=== PATIENT | male | born 1965 | race Caucasian/White ===

== ENCOUNTER 2022-10-26 12:21 | Inpatient (IN) ==
[2022-10-26] MEDS ORDERED: SODIUM CHLORIDE 0.9% 1,000 ML IV STA (18:20)
[2022-10-26 18:44] LABS: Basophils # 0.1 10*3/uL (0.0-0.2); Basophils % 0.6 % (0.0-0.8); Eosinophils # 0.3 10*3/uL (0.0-0.87); Eosinophils % 1.9 % (0.00-10.9); Hematocrit 46.9 VOL% (42.0-52.0); Hemoglobin 15.3 GM/DL (14.0-18.0); Immature Granulocytes % 1.2 %; Immature Granulocytes Absolute 0.19 #; Lymphocytes # 2.5 10*3/uL (1.4-4.0); Lymphocytes % 15.2 % (21.2-54.2); Mean Corpuscular HGB Conc 32.6 GM/DL (32-36); Mean Corpuscular Volume 94.9 FL (87-102); Mean Platelet Volume 9.1 FL (9.6-12.0); Monocytes # 1.2 10*3/uL (0.11-0.8); Monocytes % 7.7 % (1.7-12.7); Neutrophils % 73.4 % (38.7-73.9); Platelet Count 405 T/CUMM (130-400); Red Blood Count 4.94 MC/CUMM (3.8-5.5); Red Cell Distribution Width 13.5 % (9.3-17.3); White Blood Count 16.2 T/CUMM (4-12)
[2022-10-26 18:53] LABS: PT Patient Result 11.1 SECS (10.1-12.1)
[2022-10-26 19:08] LABS: Alanine Aminotransferase 32 U/L (16-61); Albumin 3.2 G/DL (3.4-5.0); Alkaline Phosphatase 88 U/L (45-117); Aspartate Amino Transferase 21 U/L (0-37); Bilirubin,Total < 0.39 MG/DL (0.20-1.00); Blood Urea Nitrogen 23 MG/DL (7-18); Calcium 9.3 MG/DL (8.5-10.1); Carbon Dioxide 30 MMOL/L (21-32); Chloride 101 MMOL/L (98-107); Glucose 107 MG/DL (74-106); Sodium 136 MMOL/L (136-145); Total Protein 8.1 G/DL (6.4-8.2)
[2022-10-26] MEDS ORDERED: ONDANSETRON 4 MG/2 ML VIAL IV ONE (20:06)
[2022-10-26] MEDS ORDERED: MORPHINE 2 MG/1 ML SYRINGE IV ONE (20:06)
[2022-10-26] MEDS ORDERED: VANCOMYCIN INJ 1,000 MG in SODIUM CHLORIDE 0.9% 250 ML IV STA (20:34)
[2022-10-26] MEDS ORDERED: PIPERACILLIN/TAZOBACTAM 3,375 MG in SODIUM CHLORIDE 0.9% 100 ML IV STA (20:34)
[2022-10-26] MEDS ORDERED: PROMETHAZINE 25 MG/1 ML VIAL IM STA (20:54)
[2022-10-26] MEDS ORDERED: PROMETHAZINE 25 MG/1 ML VIAL IV PRN (22:23)
[2022-10-26] MEDS ORDERED: ONDANSETRON 4 MG/2 ML VIAL IV PRN (22:23)
[2022-10-26] MEDS ORDERED: NICOTINE 21 MG/24 HR PATCH TRANSDERM PRN (22:23)
[2022-10-26] MEDS ORDERED: hydrALAZINE 20 MG/1 ML VIAL IV PRN (22:23)
[2022-10-26] MEDS ORDERED: ACETAMINOPHEN 325 MG TABLET PO PRN (22:23)
[2022-10-26] MEDS: SODIUM CHLORIDE 0.9% 1,000 ML IV SCH (23:15)
[2022-10-26] MEDS ORDERED: ALBUTEROL/IPRATROPIUM 3 ML NEB RESP TX ONE (23:33)
[2022-10-26] MEDS: ALBUTEROL/IPRATROPIUM 3 ML NEB RESP TX SCH (23:35)
[2022-10-26] MEDS: HYDROmorphone 1 MG/1 ML SYRINGE IV PRN (23:37)
[2022-10-27] MEDS: HYDROmorphone 1 MG/1 ML SYRINGE IV PRN ×4 (03:27→20:47)
[2022-10-27 03:48] LABS: Basophils # 0.1 10*3/uL (0.0-0.2); Basophils % 0.6 % (0.0-0.8); Eosinophils # 0.6 10*3/uL (0.0-0.87); Eosinophils % 3.9 % (0.00-10.9); Hemoglobin 12.6 GM/DL (14.0-18.0); Immature Granulocytes Absolute 0.14 #; Lymphocytes # 3.1 10*3/uL (1.4-4.0); Lymphocytes % 22.1 % (21.2-54.2); Mean Corpuscular HGB Conc 32.3 GM/DL (32-36); Mean Corpuscular Volume 95.6 FL (87-102); Mean Platelet Volume 9.7 FL (9.6-12.0); Monocytes # 1.4 10*3/uL (0.11-0.8); Monocytes % 10.3 % (1.7-12.7); Neutrophils % 62.1 % (38.7-73.9); Platelet Count 327 T/CUMM (130-400); Red Blood Count 4.08 MC/CUMM (3.8-5.5); Red Cell Distribution Width 13.5 % (9.3-17.3)
[2022-10-27 04:21] LABS: Calcium 8.1 MG/DL (8.5-10.1); Osmolality,Calculated 280.3 MOS/KG (273-304); Potassium 4.3 MMOL/L (3.5-5.1)
[2022-10-27] MEDS ORDERED: PIPERACILLIN/TAZOBACTAM 3,375 MG in SODIUM CHLORIDE 0.9% 100 ML IV SCH (06:00)
[2022-10-27] MEDS: ALBUTEROL/IPRATROPIUM 3 ML NEB RESP TX SCH ×4 (06:55→19:50)
[2022-10-27] MEDS: SODIUM CHLORIDE 0.9% 1,000 ML IV SCH ×2 (07:37→17:53)
[2022-10-27] MEDS: LEVOFLOXACIN 500 MG TABLET PO SCH (10:27)
[2022-10-27] MEDS: methylPREDNISolone SOD SUC 40 MG/1 ML VIAL IV SCH ×2 (10:27→20:41)
[2022-10-27] MEDS: PANTOPRAZOLE 40 MG TABLET PO SCH (10:27)
[2022-10-27] MEDS ORDERED: VANCOMYCIN INJ 750 MG in SODIUM CHLORIDE 0.9% 250 ML IV SCH (16:00)
[2022-10-28] MEDS: ALBUTEROL/IPRATROPIUM 3 ML NEB RESP TX SCH ×4 (00:44→19:38)
[2022-10-28] MEDS: SODIUM CHLORIDE 0.9% 1,000 ML IV SCH ×4 (01:56→14:08)
[2022-10-28 05:41] LABS: Basophils % 0.1 % (0.0-0.8); Hemoglobin 12.6 GM/DL (14.0-18.0); Immature Granulocytes % 0.7 %; Immature Granulocytes Absolute 0.11 #; Lymphocytes # 1.1 10*3/uL (1.4-4.0); Lymphocytes % 7.1 % (21.2-54.2); Mean Corpuscular HGB Conc 32.3 GM/DL (32-36); Mean Corpuscular Volume 95.6 FL (87-102); Mean Platelet Volume 9.6 FL (9.6-12.0); Monocytes # 0.6 10*3/uL (0.11-0.8); Monocytes % 4.1 % (1.7-12.7); Platelet Count 284 T/CUMM (130-400); Red Blood Count 4.08 MC/CUMM (3.8-5.5); Red Cell Distribution Width 13.3 % (9.3-17.3)
[2022-10-28 05:51] LABS: PT Patient Result 11.4 SECS (10.1-12.1); Partial Thromboplastin Time 33.3 SECS (23.7-32.9)
[2022-10-28] MEDS: methylPREDNISolone SOD SUC 40 MG/1 ML VIAL IV SCH ×3 (05:58→21:01)
[2022-10-28] MEDS ORDERED: MEPERIDINE 50 MG/1 ML VIAL IM ONE (08:00)
[2022-10-28] MEDS ORDERED: diphenhydrAMINE 50 MG/1 ML VIAL IM ONE (08:00)
[2022-10-28] MEDS ORDERED: BENZONATATE 100 MG CAPSULE PO ONE (08:00)
[2022-10-28] MEDS ORDERED: LIDOCAINE 2% VISCOUS 100 ML BOTTLE SWISH/SPIT ONE (08:30)
[2022-10-28] MEDS ORDERED: LIDOCAINE 2% 20 ML VIAL RESP TX ONE (08:30)
[2022-10-28] MEDS ORDERED: LIDOCAINE 1% 20 ML VIAL MISC INJ ONE (08:30)
[2022-10-28] MEDS ORDERED: MIDAZOLAM 2 MG/2 ML VIAL ONE (08:45)
[2022-10-28] MEDS ORDERED: ALBUTEROL/IPRATROPIUM 3 ML NEB RESP TX ONE (09:21)
[2022-10-28] MEDS: LEVOFLOXACIN 500 MG TABLET PO SCH (10:47)
[2022-10-28] MEDS: PANTOPRAZOLE 40 MG TABLET PO SCH (10:48)
[2022-10-28] MEDS: HYDROmorphone 1 MG/1 ML SYRINGE IV PRN (17:54)
[2022-10-29] MEDS: ALBUTEROL/IPRATROPIUM 3 ML NEB RESP TX SCH ×2 (00:51→08:00)
[2022-10-29] MEDS: SODIUM CHLORIDE 0.9% 1,000 ML IV SCH ×2 (03:27→14:44)
[2022-10-29 05:08] LABS: Basophils % 0.1 % (0.0-0.8); Eosinophils % 0.1 % (0.00-10.9); Hematocrit 39.6 VOL% (42.0-52.0); Immature Granulocytes % 0.8 %; Immature Granulocytes Absolute 0.15 #; Lymphocytes # 1.4 10*3/uL (1.4-4.0); Lymphocytes % 7.8 % (21.2-54.2); Mean Corpuscular HGB Conc 32.8 GM/DL (32-36); Mean Corpuscular Volume 95.4 FL (87-102); Mean Platelet Volume 9.8 FL (9.6-12.0); Monocytes % 5.5 % (1.7-12.7); Neutrophils % 85.7 % (38.7-73.9); Platelet Count 267 T/CUMM (130-400); Red Blood Count 4.15 MC/CUMM (3.8-5.5); Red Cell Distribution Width 13.7 % (9.3-17.3); White Blood Count 18.2 T/CUMM (4-12)
[2022-10-29 05:29] LABS: Albumin 2.7 G/DL (3.4-5.0); Bilirubin,Total 0.4 MG/DL (0.20-1.00); Calcium 9.2 MG/DL (8.5-10.1); Osmolality,Calculated 282.3 MOS/KG (273-304); Potassium 4.9 MMOL/L (3.5-5.1); Total Protein 6.6 G/DL (6.4-8.2)
[2022-10-29] MEDS: methylPREDNISolone SOD SUC 40 MG/1 ML VIAL IV SCH ×2 (06:04→14:44)
[2022-10-29] MEDS ORDERED: LACTATED RINGERS 1,000 ML IV SCH (08:00)
[2022-10-29] MEDS ORDERED: LIDOCAINE 2% 5 ML VIAL ONE (09:13)
[2022-10-29] MEDS ORDERED: propofoL 200 MG/20 ML VIAL IV ONE (09:13)
[2022-10-29] MEDS ORDERED: PHENYLEPHRINE 1 MG/10 ML SYRINGE IV ONE (09:31)
[2022-10-29] MEDS ORDERED: MONTELUKAST 10 MG TABLET PO SCH (11:00)
[2022-10-29] MEDS: PANTOPRAZOLE 40 MG TABLET PO SCH (11:31)
[2022-10-29] MEDS: LEVOFLOXACIN 500 MG TABLET PO SCH (11:31)
[2022-10-29 12:24] VITALS: BP 123/78
[2022-10-29] MEDS ORDERED: NYSTATIN 500,000 UNIT/5 ML UDCUP SWISH/SWAL SCH (13:00)
[2022-10-31 18:51] LABS: M. Tuberculosis PCR Result Negative (Negative); M. Tuberculosis PCR Source BRONCH WASH
[2022-11-16] MEDS ORDERED: BISACODYL 5 MG TABLET PO ONE (12:00)
[2022-11-16] MEDS ORDERED: POLYETHYLENE GLYCOL POWDER 255 GM BOTTLE PO ONE (18:00)
== END 2022-10-29 15:38 | disposition home or self-care (01) | DRG 194 ==
LOC: N.ED 12:21 → N.EDINP 22:23 → N.5E 10-27 07:12
PROVIDERS: ADMIT Internal Medicine; ATTEND Internal Medicine